=== PATIENT | male | born 1990 | race Caucasian/White ===

== ENCOUNTER 2021-05-14 20:16 | Emergency (ER) | payer OTHER ==
[~2021-05-14] VITALS: Ht 172.7 cm; Wt 126.6 kg
[2021-05-14 20:54] VITALS: BP 138/88
[2021-05-15] MEDS ORDERED: VALA10002 PO (10:30)
[2021-05-15] MEDS ORDERED: PRED20TA PO (10:30)
== END 2021-05-15 04:00 | disposition left against medical advice (07) ==
LOC: ER 20:18
DX: R20.0 Anesthesia of skin (principal); Z53.21 Procedure and treatment not carried out due to patient leaving prior to being seen by health care provider
CPT/HCPCS: 82948; 93005

== ENCOUNTER 2021-05-15 09:19 | Emergency (ER) | payer OTHER ==
[~2021-05-15] VITALS: Ht 172.7 cm; Wt 126.0 kg
--- NOTE | 2021-05-15 09:37 | NUR ---
Hold off on stroke protocol per Dr. Landin.
[2021-05-15] MEDS ORDERED: predniSONE 20 mg tablet PO ONE (10:00)
[2021-05-15] MEDS ORDERED: valacyclovir 500mg tablet PO SCH (10:00)
[2021-05-15] MEDS ORDERED: valacyclovir 500mg tablet PO ONE (10:00)
[2021-05-15] MEDS ORDERED: PRED20TA PO (10:30)
[2021-05-15] MEDS ORDERED: VALA10002 PO (10:30)
[2021-05-15 11:21] VITALS: BP 130/92
== END 2021-05-15 11:24 | disposition home or self-care (01) ==
LOC: ER 09:20
DX: G51.0 Bell's palsy (principal); R20.0 Anesthesia of skin; R53.1 Weakness; R51.9 Headache, unspecified; E11.9 Type 2 diabetes mellitus without complications; Z72.89 Other problems related to lifestyle; Z79.2 Long term (current) use of antibiotics; Z79.899 Other long term (current) drug therapy
CPT/HCPCS: 70450; 82948; 93005; 99284; J7512; 99285